=== PATIENT | female | born 1980 ===

== ENCOUNTER → 2017-09-22 | Outpatient (CLI) | payer OTHER ==
[~2017-09-22] MED LIST: CIPR500 PO; CRUTCH4 USE; HYDACE5 PO; MEDR150I; NAPR500 PO; NO MEDS; Norco 5-325 Ta1 EACH PO; PHENA200 PO; RXHYDACE PO; RXPHEN200 PO
[2017-09-22 17:22] LABS: Bilirubin, Urine Neg (Neg); Blood, Urine 3+ (Neg); Glucose Qualitative, Urine Neg (Neg); Ketones, Urine Neg (Neg); Leukocyte Esterase, Urine 2+ (Neg); Nitrite, Urine Pos (Neg); Protein, Urine Neg (Neg); Specific Gravity, Urine 1.015 (1.003-1.022); Urobilinogen, Urine NORM (Normal)
[2017-09-22 17:28] LABS: Appearance, Urine Hazy (Clear); Color, Urine Yellow (P-Yellow)
[2017-09-22 17:31] LABS: White Blood Cells, Urine 25-50 /hpf (0-5)
[2017-09-22 17:32] LABS: Bacteria Many /hpf; Squamous Epithelial Cells Few /hpf (Few)
[2017-09-23 14:36] LABS: Source Cervix
[2017-09-28 13:59] LABS: HPV Genotype 16 Not Detected (NOTDET); HPV Genotype 18 Not Detected (NOTDET); HPV High Risk Other Not Detected (NOTDET); Source Cervix
== END ==
LOC: LAB 17:09
PROVIDERS: Registered Nurse Community Health
DX: Z12.4 Encounter for screening for malignant neoplasm of cervix (principal); Z11.51 Encounter for screening for human papillomavirus (HPV); N77.1 Vaginitis, vulvitis and vulvovaginitis in diseases classified elsewhere; N39.0 Urinary tract infection, site not specified
CPT/HCPCS: 81001; 87070; 87077; 87086; 87186; 87205; 87625; G0123